=== PATIENT | female | born 1975 | race African-American/Black ===

== ENCOUNTER 2023-04-21 16:43 | Emergency (ER) | payer OTHER, SELFPAY ==
[2023-04-21 16:58] VITALS: BP 138/90; PULSE 11; RESP 16; TEMP 37.3; O2SAT 99
[2023-04-21 17:53] LABS: Color Urine Yellow (Yellow)
[2023-04-21 17:54] LABS: Appearance Urine Cloudy (Clear); Glucose Urine UA Negative (Negative); Protein Urine 2+ mg/dL (Negative); Specific Grav Ur 1.015 (1.001-1.035)
[2023-04-21 17:55] LABS: Bilirubin Urine Negative (Negative); Blood Urine 2+ (Negative); Ketones Urine Negative (Negative); Nitrate Urine Negative (Negative)
[2023-04-21 17:56] LABS: Add Urine Microscopic? YES; Leukocyte Esterase Ur 3+ LEU/UL (Negative); Urobilinogen Urine 0.2 mg/dL (<2.0)
[2023-04-21 17:59] LABS: Squamous Epithelial Cell Urine Few /hpf (Few); WBC Urine 21-50 /hpf (0-3)
[2023-04-21 18:01] LABS: Bacteria Urine Trace /hpf; Trichomonas Urine Present /hpf
[2023-04-21 18:30] VITALS: BP 148/90; PULSE 86; RESP 16; TEMP 36.8; O2SAT 100
--- NOTE | 2023-04-21 19:21 | PC.NURSE ---
This RN assumed care of patient. This RN took patient report from JJ Denny.
--- NOTE | 2023-04-21 20:58 | ED.FEMALEGU ---
HPI - Female Genitourinary General Chief complaint: Urogenital-Female Stated complaint: UTI Time Seen by Provider: 04/21/23 19:32 History of Present Illness HPI Narrative: Patient is a 48-year-old female who presents to the emergency department this evening complaining of dysuria for the past month. Patient states she was treated for urinary tract infection 1 week ago but still has dysuria despite finishing a 10 day course of antibiotics. She admits that she has an allergy to penicillin but other than that denies any other medication allergies. She denies any history of recurrent urinary tract infection. Patient denies any concern for STDs, stating that her partner is a female. Patient denies any chest pain, shortness of breath, nausea, vomiting, abdominal pain, flank pain, hematuria, constipation, diarrhea, melena, hematochezia, fevers or chills. Patient also denies any headaches, dizziness, lightheadedness, blurry visions, focal weakness, numbness and or tingling. There are no other modifying, alleviating, or precipitating factors at this time. Related Data Allergies Allergy/AdvReac Type Severity Reaction Status Date / Time Penicillins Allergy Unknown Verified 04/21/23 16:45 Review of Systems Review of Systems: All systems are reviewed and are negative unless stated otherwise in the HPI. Exam Narrative: General: Alert, awake, afebrile, in no acute distress. HEENT: PERRL, no rhinorrhea, no post nasal drip, oropharynx clear. Neck: Trachea midline, no JVD, no lymphadenopathy. Cardiovascular: Regular rate and rhythm, no murmurs, rubs or gallops, no peripheral edema. Respiratory: Clear to auscultation bilaterally, no tachypnea, no wheezing, no rhonchi, no rubs, no respiratory distress. Abdomen: Soft, nontender, nondistended, no rebound, no guarding, no peritoneal signs. Musculoskeletal: No joint swelling or deformity, normal muscle tone. Skin: No rashes or petechia, no signs of infection. Psychiatric: Alert and oriented, normal behavior and judgment for situation. Neurological: Alert and oriented to person, place, and time. Follows all commands. No focal deficits, speech is clear and fluent. Course Vital Signs Vital signs: Vital Signs Temperature 99.1 F 04/21/23 16:58 Pulse Rate 11 L 04/21/23 16:58 Respiratory Rate 16 04/21/23 16:58 Blood Pressure 138/90 04/21/23 16:58 Pulse Oximetry 99 04/21/23 16:58 Oxygen Delivery Room Air 04/21/23 16:58 Temperature 98.3 F 04/21/23 18:30 Pulse Rate 86 04/21/23 18:30 Respiratory Rate 16 04/21/23 18:30 Blood Pressure 148/90 H 04/21/23 18:30 Pulse Oximetry 100 04/21/23 18:30 Oxygen Delivery Room Air 04/21/23 18:30 MDM - Female Genitourinary MDM Narrative Medical decision making narrative: The patient was evaluated by myself in the emergency department. History is obtained from patient who is an independent historian and physical exam was performed. External medical records were reviewed at this time. Urinalysis obtained revealed a urinary tract infection with cloudy urine, 2+ protein, 2+ blood, 3+ leukesterases and urine Trichomonas. Patient was informed of this at the bedside and informed that she will be treated for UTI and Trichomonas she was also instructed to inform her partner as she would also need to be tested and treated. Differential diagnosis considerations include STD, recurrent urinary tract infection secondary to resistance and pyelonephritis, although unlikely given that the patient does not have any systemic symptoms and is denying any flank pain. I have evaluated and discussed social determinants of health with the patient that could potentially impact subsequent diagnosis and treatment plans. On repeat assessment of the patient, reevaluation revealed that the patient is doing well and is in no acute distress. Patient symptoms have remained stable since she arrived to our emergency department. Repeat vital signs were a
== END 2023-04-21 21:23 | disposition home or self-care (01) ==
PROVIDERS: Student in an Organized Health Care Education/Training Program; Emergency Provider Emergency Medicine
DX: N39.0 Urinary tract infection, site not specified (principal); A59.00 Urogenital trichomoniasis, unspecified
CPT/HCPCS: 81001; 99283

== ENCOUNTER 2023-04-24 10:28 | Emergency (ER) | payer OTHER, SELFPAY ==
[2023-04-24 10:34] VITALS: BP 129/87; PULSE 100; RESP 20; TEMP 36.6; O2SAT 100
--- NOTE | 2023-04-24 12:11 | ED.GENADULT ---
HPI - General Adult General Chief complaint: Dental/Oral Stated complaint: jaw spasms Time Seen by Provider: 04/24/23 11:20 History of Present Illness HPI narrative: Chica Darden is a 48 y/o female who presents with reports of having intermittent jaw spasm pain for a few years. She states that she has taken Cyclobenzaprine for pain before and it seems to help. She denies any chest pain / SOB / denies Related Data Home Medications Medication Instructions Recorded Confirmed cyclobenzaprine 10 mg tablet mg 04/24/23 naproxen 500 mg tablet mg 04/24/23 04/24/23 Allergies Allergy/AdvReac Type Severity Reaction Status Date / Time Penicillins Allergy Unknown Verified 04/24/23 10:37 Review of Systems Review of Systems: CONSTITUTIONAL: Denies fever, chills, or sweats. EYES: Denies visual changes, redness, or discharge. ENT: Denies rhinorrhea, congestion, sore throat, or otalgia. reports of intermittent jaw spasms for some years. CARDIOVASCULAR: Denies chest pain, palpitations, or edema. RESPIRATORY: Denies cough or dyspnea. GASTROINTESTINAL: Denies abdominal pain, nausea, vomiting, or diarrhea. GENITOURINARY: Denies dysuria or hematuria. SKIN: Denies rash or itching. MUSCULOSKELETAL: Denies back pain, joint pain, or myalgia. NEUROLOGIC: Denies headache, numbness, dizziness, or weakness. PSYCHIATRIC: Denies anxiety or depression. Exam Narrative: GENERAL: Well-appearing, well-nourished, and in no acute distress. HEAD: Normocephalic, atraumatic. EYES: PERRLA and EOMI. ENT: Nares clear, no rhinorrhea or epistaxis. Mucous membranes moist. Oropharynx without tonsillar hypertrophy exudate or other lesions. NECK: Supple. No adenopathy or masses. No carotid bruits or JVD CHEST: Clear to auscultation. No respiratory distress. No wheezes rales or rhonchi HEART: Regular rate and rhythm. No murmur heard. Normal peripheral pulses. ABDOMEN: Soft, nontender, nondistended, normal active bowel sounds. EXTREMITIES: Normal range of motion. No edema. SKIN: Warm, dry, no rash. NEURO: No focal deficits. Alert and oriented x3. PSYCH: Normal mood and affect. Course Vital Signs Vital signs: Vital Signs Temperature 36.6 C 04/24/23 10:34 Pulse Rate 100 04/24/23 10:34 Respiratory Rate 20 04/24/23 10:34 Blood Pressure 129/87 04/24/23 10:34 Pulse Oximetry 100 04/24/23 10:34 Oxygen Delivery Room Air 04/24/23 10:34 Temperature 36.6 C 04/24/23 10:34 Pulse Rate 89 04/24/23 12:57 Respiratory Rate 19 04/24/23 12:57 Blood Pressure 122/86 04/24/23 12:57 Pulse Oximetry 100 04/24/23 12:57 Oxygen Delivery Room Air 04/24/23 10:34 Medical Decision Making MDM Narrative Medical decision making narrative: On exam pt is sitting in room in a chair in no acute distress- she states that she has jaw spasms for the past few years and she has taken flexeril for this before but currently does not have any. She reports having a spasm earlier today but not currently. Denies chest pain / SOB/ fever/ sore throat/ cough/ abdominal pain/nausea/vomiting She denies difficulty swallowing Tolerating PO Able to open and close her jaw appropriately Plan to give pt a dose of Flexeril here and will d/c home on Flexeril and Naproxen Encouraged pt to follow up with ENT Strict return precautions provided all questions answered. Differential Diagnosis Differential Diagnosis: TMJ/ Trismus / muscle spasm/ Medical Records Medical records reviewed: Yes I reviewed the external patient's medical records. Vital Signs Vital Signs: Vital Signs Temperature 36.6 C 04/24/23 10:34 Pulse Rate 100 04/24/23 10:34 Respiratory Rate 20 04/24/23 10:34 Blood Pressure 129/87 04/24/23 10:34 Pulse Oximetry 100 04/24/23 10:34 Oxygen Delivery Room Air 04/24/23 10:34 Temperature 36.6 C 04/24/23 10:34 Pulse Rate 89 04/24/23 12:57 Respiratory Rate 04/24/23 12:57 Blood Pressure 122/86 04/24
[2023-04-24] MEDS: CYCLOBENZAPRINE HCL 10 MG TABLET PO (12:18)
[2023-04-24] MEDS: NAPROXEN 500 MG TABLET PO (12:18)
[2023-04-24 12:57] VITALS: BP 122/86; PULSE 89; RESP 19; O2SAT 100
== END 2023-04-24 12:58 | disposition home or self-care (01) ==
PROVIDERS: Emergency Provider Nurse Practitioner Family
DX: R68.84 Jaw pain (principal)
CPT/HCPCS: 99283; A9270

== ENCOUNTER 2025-01-22 15:27 | Emergency (ER) | payer OTHER, SELFPAY ==
[2025-01-22] VITALS (22 sets, daily range): BP systolic 134–172; BP diastolic 78–96; PULSE 77–107; RESP 16–98; TEMP 36.6–37.2; O2SAT 18–100
--- NOTE | ~2025-01-22 | CT_ITS ---
EXAMINATION: CT abdomen pelvis w con DATE: 01/22/2025 21:11 INDICATION: Right flank pain TECHNIQUE: Computed tomography (CT) of the abdomen and pelvis was performed with 100 cc Omnipaque 350 intravenous contrast. The dose-length product was 1462.76 mGy-cm. Automated exposure control and iterative reconstruction technique were employed. COMPARISON: None. FINDINGS: Lung bases unremarkable. No significant pleural or pericardial effusion. Heart size normal. Small hiatal hernia. No significant pleural or pericardial effusion. Severely atrophic right kidney. There is nonobstructing right renal stones. No ureteral stones or hydronephrosis. There is mild left renal atrophy. Fatty infiltration of the liver. Gallbladder is contracted with probable stones. Pancreas, spleen, adrenal glands are unremarkable. Nonobstructive bowel gas pattern. There is a fat-containing umbilical hernia. Colonic diverticulosis without evidence for diverticulitis. IMPRESSION: 1. Bilateral renal atrophy with scarring of the right kidney. Nonobstructing right nephrolithiasis. Reviewed, dictated and finalized at location A. IMPRESSION: 1. Bilateral renal atrophy with scarring of the right kidney. Nonobstructing ri ght nephrolithiasis.
--- OUTSIDE RECORDS SUMMARY | 2025-01-22 15:50 | XMS_ITS | Encounter Summary ---
Author Organization [facility] Address [address] [place] [address] Care Team Providers Care Pigment Supplier Name Role Phone Trinh Hammer Primary Care Provider Encounter Details Date Type Department Care Team (Late st Contact Info) Description 03/24/2023 Philly Runway Thief Message Enc [facility] Family and Internal Medicine - [place] [address] [facility] [address] [place] [address] Myclathat, [facility] Provider Screening Social History Tobacco Use Types Packs/Day Years Used Date Smoking Tobacco: Former Cigarettes 0.5 10 2 2012 Smokeless Tobacco: Never Alcohol Use Standard Drinks/Week Comments Not Currently 0 (1 standard drink = 0.6 oz pur e alcohol) PHQ-2 Answer Date Recorded Patient Health Questionnaire-2 Score 0 10/18/2022 Comments No Sex and Gender Information Value Date Recorded Sex Assigned at Not on file Legal Sex Female 2:00 PM CDT Gender Identity Not on file Sexual Orientation Lesbian or Wolf 10/18/2022 9: 43 AM CDT documented as of this encounter Plan of Treatment Not on file documented as of this encounter Visit Diagnoses Not on filedocumented in this encounter Additional Health Concerns Assessment Noted Time PHQ-9 Depression Total Score: 0 10/19/19 9:41 AM CDT documented as of this encounter Care Teams Pigment Supplier Relationship Specialty Start Date End Date Trinh Hammer FNP [address] [place] [id number] PCP - General Nurse Practitioner Family 10/18/22 documented as of this encounter
--- OUTSIDE RECORDS SUMMARY | 2025-01-22 15:50 | XMS_ITS | Clinical Summary ---
Author Organization [facility] Address [address] [place] [address] Care Team Providers Care Installer Inspector Final Name Role Phone Unknown, Provider Primary Care Provider Unavaila ble Source Comments [facility],non-owned Affiliates and Associated Physician Practices is amultiple site organization consisting of ambulatory clinics and hospital sitesin [place], [place], [place] and [place]. This disclosure is being madepursuant to the Care Everywhere program and may not contain all information available regarding this patient. 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 Gender Identity Not on file Sexual Orientation Not on file Plan of Treatment Health Maintenance Due Date Last Done Comments COLOGUARD (AGES 45-75) - COL ON CA SCREENING 1976 COLON MONITORING 1976 COLONOSCOPY - COLON CA SCREENING 1976 CT COLONOGRAPHY - COLON CA SCREENING 1976 Colorectal Cancer Screening 1976 FIT - COLON CA SCREENING 1976 FLEX SIG - COLON CA SCREENING 1976 LIPID TESTING 1976 MAMMOGRAM 1976 HIV SCREENING 02/19/1991 HEPATITIS C SCREENING 02/15/1994 DTAP/TDAP/TD VACCINES (1 - Tdap) 02/19/1995 HEPATITIS B VACCINE (1 of 3 - 19+ 3-dose series) 02/19/1995 COVID-19 VACCINE ( - 2023-2 5 season) 2024 DEPRESSION SCREENING 06/06/2024 INFLUENZA VACCINE (#1) 2025 ZOSTER VACCINE (1 of 2) 02/19/2026 HIB VACCINE Aged Out No longer eligi ble based on patient's age to complete this topic HPV VACCINE Aged Out No longer eligi ble based on patient's age to complete this topic MENINGOCOCCAL (Group B) VACC INE SHARED DECISION-MAKING Aged Out No longer eligibl e based on patient's age to complete this topic MENINGOCOCCAL GROUPS A/C/Y/W VACCINE Aged Out No longer eligible b ased on patient's age to complete this topic PNEUMOCOCCAL VACCINE Aged Out No long er eligible based on patient's age to complete this topic Care Teams Installer Inspector Final Relationship Specialty Start Date End Date Unknown, Provider PCP - General 05/27/21
--- OUTSIDE RECORDS SUMMARY | 2025-01-22 15:50 | XMS_ITS | Clinical Summary ---
Author Organization [facility] [place] [facility] Address [address] [place] [id number] Care Team Providers Care Risk Compliance Manager Name Role Phone Unknown, Notinfile Primary Care Provider Unavail able Allergies Active Allergy Reactions Criticality Noted Date Comments Penicillins Rash Medium 09/25/2024 Medications nitrofurantoin monohydrate (MACROBID) 100 mg capsule Take 1 capsule (100 mg total) by mouth 2 (two) times a day for 5 days 10 capsule 5 01/25/20 25 Active sulfamethoxazole -trimethoprim (Bactrim DS) 800-160 mg per tabletIndication s:Acute cystitis with hematuria Take 1 tablet by mouth 2 (two) times a day for 5 days 10 tablet 5 01/22/20 25 Active Problems Problem Noted Date Diagnosed Date Dysfunction of right eustachian tube 10/18/2022 Encounters Date Type Department Care Team Description 01/19/2025 Results Follow-Up [facility] [address] [phone] Basilia Trejo NP Urine culture Urine, clean voided 01/16/2025 4:59 PM CDT - 01/16/2025 11:59 PM CDT Hospital Encounter [address] [address] Acute cystitis with hematuria Discharge Disposition: Discharge to home or self care 01/16/2025 2:15 PM CDT Office Visit [facility] [address] [phone] Tabatha Boateng NP Acute cystitis with hematuria (Primary Dx) from Last 3 Months Social History Tobacco Use Types Packs/Day Years Used Date Smoking Tobacco: Never Assessed Comments Unknown Sex and Gender Information Value Date Recorded Sex Assigned at Not on file 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 Gender Identity Not on file Sexual Orientation Not on file Obstetrics History Last Filed Vital Signs Vital Sign Reading Time Taken Comments Blood Pressure 166/89 01/16/2025 2:17 PM CDT Pulse 96 01/16/2025 2:17 PM CDT Temperature 36.1 C (97 F) 01/16/2025 2:17 PM CDT Respiratory Rate 20 01/16/2025 2:17 PM CDT Oxygen Saturation 95% 01/16/2025 2:17 PM CDT Inhaled Oxygen Concentration - - Weight 172.4 kg (380 lb) 01/16/2025 2:17 PM CDT Height 149.9 cm (4' 11) 09/25/2024 8:43 AM CDT Body Mass Index 76.75 09/25/2024 8:43 AM CDT Plan of Treatment Health Maintenance Due Date Last Done Comments Breast Cancer Screening-Mammogram 1976 Cervical Cancer Screening 1976 Colon Cancer Screening-Colonoscopy 1976 Depression Screening 1976 Hepatitis C Screening 1976 DTaP/Tdap/Td Vaccine (1 - Tdap) 02/19/1987 Hepatitis B Screening 02/19/1994 Regular Well Visit/Exam 18-64 02/19/1994 Influenza Vaccine (#1) 2025 Pneumococcal vaccine <65 Aged Out No longer eligible based on patient's age to complete this topic Procedures Procedure Name Priority Date/Time Associated Diagnosis Comments URINE CULTURE Routine 01/16/2025 4:59 PM CDT Acute cystitis with hematuria POCT URINALYSIS DIPSTICK Routine 01/16/2025 2:22 PM CDT Acute cystitis with hematuria from Last 3 Months Results * (ABNORMAL) Urine culture Urine, clean voided (01/16/2025 4:59 PM CDT) Report Final Report: Greater than or equal to 100,000 colonies/mL of Escherichia coli (.) Comment:Testing performed by : [facility], [address] [place] [address] Organism ESCHERICHIA COLI [facility] Urine, clean voided 01/16/2025 4:59 PM CDT 01/17/2025 12:29 AM CDT Narrative [facility] - 01/19/2025 10:08 AM CDT Testing performed by [facility] ([phone]) Organism Antibiotic Method Susceptibility Escherichia coli Ampicillin INTERPRETATION Susceptible Escherichia coli Cefazolin INTERPRETATION Susceptible Escherichia coli Nitrofurantoin INTERPRETATION Susceptible Escherichia coli Gentamicin INTERPRETATION Susceptible Escherichia coli Trimethoprim with Sulfamethoxazole IN TERPRETATION Resistant Escherichia coli Meropenem INTERPRETATION Susceptible Escherichia coli Cefepime INTERPRETATION Susceptible Escherichia coli Ciprofloxacin INTERPRETATION Resistant Escherichia coli Ceftazidime INTERPRETATION Susceptible Escherichia coli Ceftriaxone INTERPRETATION Susceptible Escherichia coli Piperacillin/Tazobactam INTERPRETATIO N Susceptible Escherichia coli Cephalexin INTERPRETATION Susceptible Escherichia coli Cefuroxime-axetil INTERPRETATION Susceptible Escherichia coli Cefdinir INTERPRETATION Susceptible Tabatha Boateng NP LAB MICROBIOLOGY - GENERAL ORD ERABLES Final Result [facility] [id number] [address] Department [place] [address] * (ABNORMAL) POCT urinalysis dipstick (01/16/2025 2:22 PM CDT) Color, Urine, POC Yellow Clarity, ur, POC Cloudy(A) Clear Glucose, ur, POC Negative Negative Bilirubin, ur, POC Negative Negative Ketones, ur, POC Negative Negative Specific [place], POC 1.020 1.003 - 1.030 Blood, ur, POC Moderate(A) Negative pH, ur, POC 6.5 5.0 - 8.0 Protein, ur, POC 100.(A) Negative Urobilinogen, urine, POC 0.2 0.2 - 1.0 mg/dL Nitrite, ur, POC Positive(A) Negative Leukocytes, ur, POC Large(A) Negative Lot Number [id number] Urine 01/16/2025 2:22 PM CDT us Tabatha Boateng NP POINT OF CARE TEST ORDERABLES Edited Result - Final from Last 3 Months Insurance Care Teams Risk Compliance Manager Relationship Specialty Start Date End Date Unknown, Notinfile PCP - General 09/25/24
--- OUTSIDE RECORDS SUMMARY | 2025-01-22 15:50 | XMS_ITS | Clinical Summary ---
Author Organization [facility] Address [address] [place] [address] Care Team Providers Care Pmo Analyst Name Role Phone Trinh Hammer YOANNA Primary Care Provider [phone] Allergies Active Allergy Reactions Criticality Noted Date Comments Penicillins Other (see comment) 10/18/2022 Family HX Medications methylPREDNISo MARY robledo, (MEDROL DOSEPAK) 4 MG tabletIndicati ons:Dysfunctio n of right eustachian tube Take 1 tablet (4 mg total) by mouth see administration instructions. 6 TABLETS ON DAY ONE, 5 TABLETS DAY TWO, 4 TABLETS DAY THREE, 3 TABLETS DAY FOUR, 2 TABLETS DAY FIVE, AND 1 TABLET DAY SIX 1 each 3 Active semaglutide-we ight management (WEGOVY) 0.25 mg/dose injection (PEN)Indicatio ns:BMI 60.0-69.9, adult ([facility]) Inject 0.25 mg into the skin once a week. 2 mL 3 Active Active Problems Problem Noted Date Diagnosed Date BMI 60.0-69.9, adult 10/18/2022 Dysfunction of right eustachian tube 10/18/2022 Family history of diabetes mellitus (DM) 023 Family History Medical History Relation Comments Diabetes Father Diabetes Maternal Grandmother Cancer Mother Diabetes Mother Diabetes Sister Relation Status Comments Father Maternal Grandmother Mother Sister Alive Social History Tobacco Use Types Packs/Day Years Used Date Smoking Tobacco: Former Cigarettes 0.5 10 2 003 - 2012 Smokeless Tobacco: Never Tobacco Cessation:Counseling Given: Not Answered Alcohol Use Standard Drinks/Week Comments Not Currently 0 (1 standard drink = 0.6 oz pur e alcohol) PHQ-2 Answer Date Recorded Patient Health Questionnaire-2 Score 0 10/18/2022 Comments No Sex and Gender Information Value Date Recorded Sex Assigned at Not on file Legal Sex Female 2:00 PM CDT Gender Identity Not on file Sexual Orientation Lesbian or Wolf 10/18/2022 9: 43 AM CDT Last Filed Vital Signs Vital Sign Reading Time Taken Comments Blood Pressure 138/82 10/18/2022 9:45 AM CDT Pulse 87 10/18/2022 9:45 AM CDT Temperature 36.7 C (98 F) 10/18/2022 9:45 AM CDT Respiratory Rate 18 10/18/2022 9:45 AM CDT Oxygen Saturation 97% 10/18/2022 9:45 AM CDT Inhaled Oxygen Concentration - - Weight 155.4 kg (342 lb 8 oz) 10/18/2022 9:45 AM CDT Height 149.9 cm (4' 11) 10/18/2022 9:45 AM CDT Body Mass Index 69.18 10/18/2022 9:45 AM CDT Plan of Treatment Health Maintenance Due Date Last Done Comments Cervical Cancer Screening Pa p Smear (Age 30 to 64) Every 3 Years 1976 Colorectal Cancer Screening Colonoscopy (10 Years) 1976 Annual Physical 02/19/1979 DTaP, Tdap and Td Vaccines ( 1 - Tdap) 02/19/1995 Hepatitis B Vaccines (1 of 3 - 19+ 3-dose series) 02/19/1995 Cervical Cancer Screening Pa p with HPV Testing (Age 30 to 64) Every 5 Years 02/19/2006 Cervical Cancer Screening with HPV 02/19/2006 Mammogram Screening 2016 COVID-19 Vaccine ( - 2023-2 5 season) 2024 PHQ-2 (Physician [place]) 06/06/2024 Hepatitis C Completed 10/18/2022 Meningococcal B Vaccine Aged Out No l onger eligible based on patient's age to complete this topic Meningococcal Vaccine Aged Out No sameera sina eligible based on patient's age to complete this topic Pneumococcal Vaccine: Pediat rics (0 to 5 Years) and At-Risk Patients (6 to 49 Years) Aged Out No longer eligi ble based on patient's age to complete this topic RSV Immunizations Under 20 Months Aged Out No longer eligible based on patient's age to complete this topic Procedures Procedure Name Priority Date/Time Associated Diagnosis Comments HEPATITIS C ANTIBODY Routine 10/18/2022 10:59 AM CDT Encounter for hepatitis C screening test for low risk patient from Last 3 Months or Most Recently Relevant to Health Maintenance Results * HEPATITIS C ANTIBODY ([facility] ONLY) (10/18/2022 10:59 AM CDT) HEPATITIS C AB NON-REACTI VE NON-REACT MEHREEN 10/18/2022 9:48 PM CDT [facility] Comment: ANTIBODIES TO HCV NOT DETECTED. DOES NOT EXCLUDE THE POSSIBILITY OF EXPOSURE TO HCV. 10/18/2022 10:5 9 AM CDT Trinh [facility] Final Result Performing Organization Address City/State/[facility] Co de Phone Number [facility] [address] [place] [address], [id number] from Last 3 Months or Most Recently Relevant to Health Maintenance Insurance [facility] Care Teams Pmo Analyst Relationship Specialty Start Date End Date Trinh Hammer FNP [address] [place] [id number] PCP - General Nurse Practitioner Family 10/18/22
--- NOTE | 2025-01-22 17:36 | ED_ITS ---
HPI - Back Pain/Injury General Chief Complaint: Back Pain/Injury <Rachel Chowdhury PA-C - Last Filed: 01/23/25 09:50> Stated Complaint: back pain, UTI <Rachel Chowdhury PA-C - Last Filed: 01/23/25 09:50> Time Seen by Provider: 01/22/25 17:36 <Rachel Chowdhury PA-C - Last Filed: 01/23/25 09:50> Focused HPI: This is a 49 year old female that presents to the ER for flank pain. Reports she was started on an antibiotic for UTI one week ago. She has been on 2 different antibiotics based on culture results. Reports worsening left flank pain. She is currently taking Macrobid for her UTI. Denies fevers, vomiting. GENERAL: Well-appearing, well-nourished, and in no acute distress. HEAD: Normocephalic, atraumatic. CHEST: Clear to auscultation. ?No respiratory distress. HEART: Regular rate and rhythm.? NEURO: ?Alert and oriented x3. Patient screened in triage and initial orders placed.? ?Additional care and disposition to be based upon?diagnostic testing and treatment. <ELISA Conde Last Filed: 01/23/25 09:50> History of Present Illness HPI Narrative: Agree with HPI <Ant Martin MD - Last Filed: 01/22/25 22:11> Related Data Home Medications: Home Medications ?Medication ?Instructions ?Recorded ?Confirmed ?Last Taken ?Type cyclobenzaprine 10 mg tablet mg 04/24/23 Unknown Hist ory naproxen 500 mg tablet mg 04/24/23 04/24/23 Unknown History <Rachel Chowdhury PA-C - Last Filed: 01/23/25 09:50> Allergies/Adverse Reactions: Allergies Allergy/AdvReac Type Severity Reaction Status Date / Time Penicillins Allergy Unknown Verified 01/22/25 18:09 <ELISA Conde Last Filed: 01/23/25 09:50> Review of Systems 2 Review of Systems: Gen.: Denies fevers or chills Eyes: Denies eye pain or visual change ENT: Denies congestion Respiratory: Denies shortness of breath or cough CV: Denies chest pain or palpitations GI: Denies abdominal pain nausea, emesis or diarrhea denies burning, urgency, frequency or hematuria Musculoskeletal: As per HPI Neuro: Denies numbness, tingling, weakness or focal weakness Skin: Denies rash Except as documented, all other systems reviewed and negative <Ant Martin MD - Last Filed: 01/22/25 22:11> Exam 2 Narrative: APPEARANCE: No acute distress, nontoxic, resting in bed EYES: EOMI HEENT: Normocephalic, atraumatic, OMM RESPIRATORY: No respiratory distress Clear to auscultation bilaterally with no rhonchi wheezing or rales. CARDIOVASCULAR: Regular rate and rhythm without murmurs rubs or gallops. ABDOMINAL: Soft, nontender, nondistended, no rebound or guarding MUSCULOSKELETAl: Moves all extremities. No clubbing, cyanosis or edema. NEURO: Awake and alert. Following commands, speech normal, no focal deficits SKIN:: Warm, dry. No rashes lesions or abrasions PSYCHIATRIC: Normal affect/mood, <Ant Martin MD - Last Filed: 01/22/25 22:11> Course Vital Signs Vital signs: Vital Signs Temperature 97.8 F 01/22/25 15:38 Pulse Rate 107 H 01/22/25 15:38 Respiratory Rate 16 01/22/25 15:38 Blood Pressure 153/93 H 01/22/25 15:38 Pulse Oximetry 98 01/22/25 15:38 Oxygen Delivery Room Air 01/22/25 15:38 Temperature 99 F 01/22/25 18:04 Pulse Rate 80 01/22/25 21:45 Respiratory Rate 23 H 01/22/25 21:45 Blood Pressure 159/92 H 01/22/25 21:17 Pulse Oximetry 97 01/22/25 21:45 Oxygen Delivery Room Air 01/22/25 18:04 <Rachel Chowdhury PA-C - Last Filed: 01/23/25 09:50> Vital Signs Temperature 97.8 F 01/22/25 15:38 Pulse Rate 107 H 01/22/25 15:38 Respiratory Rate 16 01/22/25 15:38 Blood Pressure 153/93 H 01/22/25 15:38 Pulse Oximetry 98 01/22/25 15:38 Oxygen Delivery Room Air 01/22/25 15:38 Temperature 99 F 01/22/25 18:04 Pulse Rate 80 01/22/25 21:45 Respiratory Rate 23 H 01/22/25 21:45 Blood Pressure 159/92 H 01/22/25 21:17 Pulse Oximetry 97 01/22/25 21:45 Oxygen Delivery Room Air 01/22/25 18:04 <Ant Martin MD - Last Filed: 01/22/25 22:11> MDM - Back Pain/Injury MDM Narrative Medical decision making narrative: 49-year-old female that presented to the ED for left flank pain. ABdomen soft and nontender. No CVA tenderness. Mildly tachycardic but otherwise VSS. Given that she has had antibiotics, there was concerns for developing pyelonephritis. CT abdomen/pelvis was obtained and showed no acute process. UA did continue to show signs of a UTI. She may still be developing a pyelonephritis. Therefore, she was switched to ciprofloxacin. There also may be some musculoskeletal so she was given prescriptions for Flexeril and Lidoderm. She was given a referral to Urology for further evaluation. Patient was agreeable to plan. Given strict return precautions. <Ant Martin MD - Last Filed: 01/22/25 22:11> Differential Diagnosis Differential diagnosis: Likely strain of lumbar region, renal colic and pyelonephritis <Ant Martin MD - Last Filed: 01/22/25 22:11> Lab Data Attestation: I reviewed the patient's lab results. <Ant Martin MD - Last Filed: 01/22/25 22:11> Result diagrams: 01/22/25 17:45 01/22/25 17:45 <Rachel Chowdhury PA-C - Last Filed: 01/23/25 09:50> Labs: Lab Results 01/22/25 01/22/25 01/22/25 Range/Units 17:45 19:05 19:06 WBC 10.5 H (4.5-10.0) K/mm3 RBC 4.74 (4.2-5.4) M/mm3 Hgb 12.0 (12.0-15.0) g/dL Hct 38.4 (37.0-47.0) % MCV 81.0 (80-100) fl MCH 25.3 L (26-34) pg MCHC 31.3 L (32-36) g/dl RDW 16.5 H (11.5-14.5) % Plt Count 321 (150-375) k/mm3 MPV 10.0 (7.4-10.4) fl Immature Gran % (Auto) 0.2 (0-0.5) % Neut % (Auto) 61.3 (45.5-73.1) % Lymph % (Auto) 25.0 (18.3-44.2) % [place] % (Auto) 7.0 (2.6-8.5) % Eos % (Auto) 6.3 H (0-4.4) % Baso % (Auto) 0.2 (0.2-1.2) % Lymph # (Auto) 2.62 (0.9-3.2) K/mm3 [place] # (Auto) 0.7 H (0.1-0.6) K/mm3 Eos # (Auto) 0.7 H (0-0.3) K/mm3 Baso # (Auto) 0.0 (0.0-0.1) K/mm3 Abs Immat Gran (auto) 0.02 (0.00-0.031) K/mm3 Absolute Neuts (auto) 6.4 (1.3-6.7) K/mm3 Absolute Nucleated RBC 0.000 (0.0-0.012) K/mm3 Nucleated RBC % 0.0 (0.0-0.2) % Sodium 136 L (137-145) mmol/L Potassium 4.9 (3.4-5.0) mmol/L Chloride 104 (98-107) mmol/L Carbon Dioxide 24 (22-30) mmol/L Anion Gap 8 (4-12) mmol/L BUN 21 H (7-17) mg/dL Creatinine 1.19 H (0.7-1.0) mg/dL Estim Creat Clear Calc Not Reportable Estimated GFR 48 L (59 - ) Glucose 91 (65-110) mg/dL Calcium 9.2 (8.4-10.2) mg/dL Total Bilirubin 0.5 (0.2-1.3) mg/dL AST 38 H (14-36) U/L ALT 21 (6-35) U/L Alkaline Phosphatase 103 (38-126) U/L Total Protein 9.4 H (6.3-8.2) g/dL Albumin 4.3 (3.5-5.1) g/dL Lipase 116 (23-300) U/L Urine Color Yellow (Yellow) Urine Appearance Cloudy H (Clear) Urine pH 5.5 (5.0-9.0) Ur Specific [place] 1.017 (1.001-1.035) Urine Protein 2+ H (Negative) mg/dL Urine Glucose (UA) Negative (Negative) mg/dL Urine Ketones Negative (Negative) mg/dL Ur Blood (Man) 2+ H (Negative) Urine Nitrate Negative (Negative) Urine Bilirubin Negative (Negative) Urine Urobilinogen 0.2 (<2.0) mg/dL Leukocyte Esterase Rfl 2+ H (Negative) DOYLE/UL Urine RBC 21-50 H (0-2) /hpf Urine WBC 51-100 H (0-3) /hpf Ur Squamous Epith Cells Occasional (Few) /hpf Urine Bacteria Trace /hpf Urine Casts 0-2 POC Urine HCG, Qual Negative (Negative) <Rachel Chowdhury PA-C - Last Filed: 01/23/25 09:50> Lab Results 01/22/25 01/22/25 01/22/25 Range/Units 17:45 19:05 19:06 WBC 10.5 H (4.5-10.0) K/mm3 RBC 4.74 (4.2-5.4) M/mm3 Hgb 12.0 (12.0-15.0) g/dL Hct 38.4 (37.0-47.0) % MCV 81.0 (80-100) fl MCH 25.3 L (26-34) pg MCHC 31.3 L (32-36) g/dl RDW 16.5 H (11.5-14.5) % Plt Count 321 (150-375) k/mm3 MPV 10.0 (7.4-10.4) fl Immature Gran % (Auto) 0.2 (0-0.5) % Neut % (Auto) 61.3 (45.5-73.1) % Lymph % (Auto) 25.0 (18.3-44.2) % [place] % (Auto) 7.0 (2.6-8.5) % Eos % (Auto) 6.3 H (0-4.4) % Baso % (Auto) 0.2 (0.2-1.2) % Lymph # (Auto) 2.62 (0.9-3.2) K/mm3 [place] # (Auto) 0.7 H (0.1-0.6) K/mm3 Eos # (Auto) 0.7 H (0-0.3) K/mm3 Baso # (Auto) 0.0 (0.0-0.1) K/mm3 Abs Immat Gran (auto) 0.02 (0.00-0.031) K/mm3 Absolute Neuts (auto) 6.4 (1.3-6.7) K/mm3 Absolute Nucleated RBC 0.000 (0.0-0.012) K/mm3 Nucleated RBC % 0.0 (0.0-0.2) % Sodium 136 L (137-145) mmol/L Potassium 4.9 (3.4-5.0) mmol/L Chloride 104 (98-107) mmol/L Carbon Dioxide 24 (22-30) mmol/L Anion Gap 8 (4-12) mmol/L BUN 21 H (7-17) mg/dL Creatinine 1.19 H (0.7-1.0) mg/dL Estim Creat Clear Calc Not Reportable Estimated GFR 48 L (59 - ) Glucose 91 (65-110) mg/dL Calcium 9.2 (8.4-10.2) mg/dL Total Bilirubin 0.5 (0.2-1.3) mg/dL AST 38 H (14-36) U/L ALT 21 (6-35) U/L Alkaline Phosphatase 103 (38-126) U/L Total Protein 9.4 H (6.3-8.2) g/dL Albumin 4.3 (3.5-5.1) g/dL Lipase 116 (23-300) U/L Urine Color Yellow (Yellow) Urine Appearance Cloudy H (Clear) Urine pH 5.5 (5.0-9.0) Ur Specific [place] 1.017 (1.001-1.035) Urine Protein 2+ H (Negative) mg/dL Urine Glucose (UA) Negative (Negative) mg/dL Urine Ketones Negative (Negative) mg/dL Ur Blood (Man) 2+ H (Negative) Urine Nitrate Negative (Negative) Urine Bilirubin Negative (Negative) Urine Urobilinogen 0.2 (<2.0) mg/dL Leukocyte Esterase Rfl 2+ H (Negative) DOYLE/UL Urine RBC 21-50 H (0-2) /hpf Urine WBC 51-100 H (0-3) /hpf Ur Squamous Epith Cells Occasional (Few) /hpf Urine Bacteria Trace /hpf Urine Casts 0-2 POC Urine HCG, Qual Negative (Negative) <Ant Martin MD - Last Filed: 01/22/25 22:11> Imaging Data Radiologist's impression: Impressions Abdomen/Pelvis CT 01/22/25 21:23 IMPRESSION: 1. Bilateral renal atrophy with scarring of the right kidney. Nonobstructing right nephrolithiasis. <Ant Martin MD - Last Filed: 01/22/25 22:11> Critical Care Time Critical Care Time Critical Care Time: No <Rachel Chowdhury PA-C - Last Filed: 01/23/25 09:50> Discharge Plan Discharge Clinical Impression: UTI (urinary tract infection) Qualifiers: Urinary tract infection type: acute pyelonephritis Qualified Code(s): N10 - Acute pyelonephritis Back pain Qualifiers: Back pain location: low back pain Chronicity: acute Back pain laterality: left Sciatica presence: without sciatica Qualified Code(s): M54.50 - Low back pain, unspecified <Rachel Chowdhury PA-C - Last Filed: 01/23/25 09:50> Patient Disposition: Home <Rachel Chowdhury PA-C - Last Filed: 01/23/25 09:50> Condition: Stable <ELISA Conde Last Filed: 01/23/25 09:50> Instructions: Antibiotic Form, Urinary Tract Infection in Women (ED) <Rachel Chowdhury PA-C - Last Filed: 01/23/25 09:50> Additional Instructions: Suspect you may have a resistant UTI that could be developing into pyelonephritis. Stop taking the antibiotic you were switched to. Take ciprofloxacin as prescribed. Take lidoderm and flexeril as prescribed for back pain. You may also take tylenol and ibuprofen for pain. <Rachel Chowdhury PA-C - Last Filed: 01/23/25 09:50> Patient Language: Georgian <Rachel Chowdhury PA-C - Last Filed: 01/23/25 09:50> Prescriptions: New ciprofloxacin HCl 500 mg tablet 500 mg PO Q12H Qty: 10 0RF lidocaine [Lidoderm] 5 % adhesive patch,medicated 1 patch topical DAILY Qty: 15 0RF Rx Instructions: leave on most painful area for up to 12 hrs cyclobenzaprine 10 mg tablet 10 mg PO HS PRN (Reason: muscle spasm) Qty: 30 0RF No Action metronidazole 500 mg tablet 500 mg PO Q12H 7 Days Qty: 14 0RF sulfamethoxazole-trimethoprim [Bactrim DS] 800-160 mg tablet 1 tablet PO Q12H 5 Days Qty: 10 0RF cyclobenzaprine 10 mg tablet naproxen 500 mg tablet naproxen 500 mg tablet 500 mg PO BID PRN (Reason: pain) Qty: 28 0RF cyclobenzaprine 10 mg tablet 10 mg PO TID Qty: 30 0RF <Rachel Chowdhury PA-C - Last Filed: 01/23/25 09:50> Follow-up/Referrals: Junito Morgan MD [Physician, Urology] PHYSICIAN,NETWORK SERVICES PROJECT MANAGER [Primary Care Provider, Internal Medicine] <Rachel Chowdhury PA-C - Last Filed: 01/23/25 09:50>
[2025-01-22 17:51] LABS: Hematocrit 38.4 % (37.0-47.0); Hemoglobin 12.0 g/dL (12.0-15.0); Immature Granulocyte Percent A 0.2 % (0-0.5); Lymphocytes Absolute Auto 2.62 K/mm3 (0.9-3.2); Mean Corpuscular HGB Conc 31.3 g/dl (32-36); Mean Corpuscular Hemoglobin 25.3 pg (26-34); Mean Corpuscular Volume 81.0 fl (80-100); Nucleated Red Blood Cells Absolute Auto 0.000 K/mm3 (0.0-0.012); Nucleated Red Blood Cells Perc 0.0 % (0.0-0.2); Platelet Count Result 321 k/mm3 (150-375); Red Blood Count 4.74 M/mm3 (4.2-5.4); White Blood Count 10.5 K/mm3 (4.5-10.0)
[2025-01-22] MEDS: KETOROLAC 30 MG/ML VIAL (*BKC) IV PUSH (18:13)
[2025-01-22] MEDS: SODIUM CHLORIDE 0.9% IV 1,000 ML 999 ML IV CONT (18:13)
[2025-01-22 19:07] LABS: BEDSIDEPREGUCG Negative (Negative)
[2025-01-22 19:19] LABS: Add Urine Microscopic? YES; Appearance Urine Cloudy (Clear); Glucose Urine UA Negative (Negative); Leukocyte Esterase Ur 2+ LEU/UL (Negative); Nitrate Urine Negative (Negative); Non Pathogenic Casts 0-2; Specific Grav Ur 1.017 (1.001-1.035)
--- OUTSIDE RECORDS SUMMARY | 2025-01-22 19:36 | XMS_ITS | Encounter Summary ---
Author Organization [facility] Address [address] [place] [id number] Care Team Providers Care Labview Programmer Name Role Phone Trinh Hammer Primary Care Provider [phone] Encounter Details Date Type Department Care Team (Late st Contact Info) Description 03/24/2023 [employer] Message Enc [facility] Family and Internal Medicine - [place] [address] [facility] [address] [place] [address] Myclathat, [facility] Provider Screening Social History Tobacco Use Types [...] documented as of this encounter Care Teams Labview Programmer Relationship Specialty Start Date End Date Trinh Hammer FNP [address] [place] [id number] PCP - General Nurse Practitioner Family 10/18/22 documented as of this encounter
--- OUTSIDE RECORDS SUMMARY | 2025-01-22 19:36 | XMS_ITS | Clinical Summary ---
Author Organization [facility] Address [address] [place] [address] Care Team Providers Care Wet Inspector Optical Glass Name Role Phone Trinh Hammer YOANNA Primary Care Provider [phone] Allergies Active Allergy Reactions Criticality Noted Date [...] 0.25 mg/dose injection (PEN)Indicatio ns:BMI 60.0-69.9, adult ([facility]) Inject 0.25 mg into the skin once [...] - 2023-2 5 season) 2024 PHQ-2 (Physician [place]) 06/06/2024 Hepatitis C Completed 10/18/2022 Meningococcal B [...] Health Maintenance Results * HEPATITIS C ANTIBODY ([facility] ONLY) (10/18/2022 10:59 AM CDT) HEPATITIS C AB NON-REACTI VE NON-REACT MEHREEN 10/18/2022 9:[address] [facility] Comment: ANTIBODIES TO HCV NOT DETECTED. DOES NOT EXCLUDE THE POSSIBILITY OF EXPOSURE TO HCV. 10/18/2022 10:5 9 AM CDT Trin[facility] Final Result Performing Organization Address City/State/[facility] Co de Phone Number [facility] [address] [place] [address], [id number] from Last 3 Months or Most Recently Relevant to Health Maintenance Insurance [facility] Care Teams Wet Inspector Optical Glass Relationship Specialty Start Date End Date Trinh Hammer FNP [address] [place] [id number] PCP - General Nurse Practitioner Family 10/18/22
--- OUTSIDE RECORDS SUMMARY | 2025-01-22 19:36 | XMS_ITS | Clinical Summary ---
Author Organization [facility] Address [address] [place] [address] Care Team Providers Care Inspector [place]ising Name Role Phone Unknown, Provider Primary Care Provider Unavaila ble Source Comments [facility],non-owned Affiliates and Associated Physician Practices is amultiple site organization consisting of ambulatory clinics and hospital sitesin [place], [place], [place] and [place]. This disclosure is being madepursuant to the Care Everywhere program and may not contain all information available regarding this patient. Last updated 18.[facility] Reimage Social History Tobacco Use Types Packs/Day Years Used Date Smoking Tobacco: Never Assessed Comments Unknown Sex and Gender Information Value Date Recorded Sex Assigned at Not on file Legal Sex Female 4:34 PM [employer] Gender Identity Not on file Sexual Orientation [...] age to complete this topic Care Teams Inspector [place]ising Relationship Specialty Start Date End Date Unknown, Provider PCP - General 05/27/21
--- NOTE | 2025-01-22 20:11 | PC.NURSE ---
18:56 vitals: oxygen saturation of 18% documented in error.
[2025-01-22 20:40] LABS: Alanine Aminotransferase 21 U/L (6-35); Albumin Level 4.3 g/dL (3.5-5.1); Alkaline Phosphatase 103 U/L (38-126); Anion Gap 8 mmol/L (4-12); Aspartate Amino Transferase 38 U/L (14-36); Bilirubin,Total 0.5 mg/dL (0.2-1.3); Blood Urea Nitrogen 21 mg/dL (7-17); Calcium 9.2 mg/dL (8.4-10.2); Carbon Dioxide 24 mmol/L (22-30); Chloride 104 mmol/L (98-107); Estimated Glomerular Filt Rate 48; Glucose 91 mg/dL (65-110); Lipase 116 U/L (23-300); Potassium 4.9 mmol/L (3.4-5.0); Sodium 136 mmol/L (137-145); Total Protein 9.4 g/dL (6.3-8.2)
== END 2025-01-22 22:05 | disposition home or self-care (01) ==
PROVIDERS: Physician Assistant; Emergency Provider Student in an Organized Health Care Education/Training Program
DX: N10 Acute pyelonephritis (principal); M54.50 Low back pain, unspecified
CPT/HCPCS: 36415; 74177; 80053; 81001; 81025; 83690; 85025; 87086; 96361; 96374; 99284; J1885; J7030; Q9967